=== PATIENT | female | born 1985 | race Caucasian/White ===

== ENCOUNTER 2017-09-26 11:57 | Emergency (ER) | payer MEDICAID ==
[~2017-09-26 11:57] MED LIST: BUTA1CAP36 PO; CIPR-214 PO; CYCL10TA29 PO; DUL20 PO; IBUP600T22 PO; KET10 PO; LORA-1456 PO; MULT1TAB54 PO; NORE0.3529 PO; NORT50CA40 PO; ONDA4TAB PO; ONDA4TAB9 PO; ONDA4TAB97 PO; OXYC-865 PO; SUMA6CAR SQ; TRAM-420 PO; [UNRECOGNIZED DRUG - OTHER]; muscle relaxer PO
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
[2017-09-26] MEDS ORDERED: NS(*) 0.9% 1000 ML BAG 1,000 ML IV ONE (12:15)
[2017-09-26 12:36] LABS: PLATELET COUNT, AUTOMATED 212 K/uL (150-450)
--- NOTE | 2017-09-26 13:00 | RADIOLOGY IMAGING REPORT ---
FACILITY: [facility] PATIENT NAME: Xin Bello : 1985 MR: [id number] V: [id number] EXAM DATE: ORDERING PHYSICIAN: SHAUN ANDERSEN TECHNOLOGIST: Location: [facility] Patient: Xin Bello : 1985 Visit/Account:[id number] Date of Sevice: 09/26/2017 2 VIEWS CHEST INDICATION: Chest pain, shortness of breath and dizziness. COMPARISON: None available FINDINGS: Cardiomediastinal silhouette and pulmonary vessels within normal limits. There is no focal infiltrate or lobar consolidation. There is no pneumothorax or pleural effusion. No nodule. Upper abdomen is unremarkable. No acute bony abnormality. IMPRESSION: 1. No acute cardiopulmonary process. Report Dictated By: Servando Stein at 09/26/2017 12:55 PM Report E-Signed By: Servando Stein at 09/26/2017 12:56 PM WSN:[id number]
--- NOTE | 2017-09-26 13:00 | EKG ---
FACILITY: [facility] [place] PATIENT NAME: BERRY BUSH : [id number] MR: [id number] V: [id number] EXAM DATE: ORDERING PHYSICIAN: SHAUN ANDERSEN TECHNOLOGIST: BRYANT Rodriguez Reason : DIZZINESS Blood Pressure : / mmHG Vent. Rate : 080 BPM Atrial Rate : 080 BPM P-R Int : 142 ms QRS Dur : 088 ms QT Int : 366 ms P-R-T Axes : 041 066 039 degrees QTc Int : 422 ms Normal sinus rhythm Normal ECG Confirmed by NORMA COPPOLA ([id number]) on 09/26/2017 5:44:29 PM Referred By: SHAUN Confirmed By:NORMA COPPOLA
[2017-09-26 13:30] VITALS: BP 135/77
[2017-09-26] MEDS ORDERED: hydrOXYzine 25 MG TAB PO ONE (13:35)
[2017-09-26] MEDS ORDERED: HYDR-4225 PO (13:46)
== END 2017-09-26 13:57 | disposition home or self-care (01) ==
LOC: ER 12:26
DX: R07.89 Other chest pain (principal); F41.9 Anxiety disorder, unspecified
CPT/HCPCS: 71046; 81001; 84484; 84703; 85025; 85379; 93005; 96360; 96361; 99284; J7030; 82040; 82247; 82310; 82374; 82435; 82565; 82947; 84075; 84132; 84155; 84295; 84450; 84460; 84520

== ENCOUNTER 2018-01-06 19:49 | Emergency (ER) | payer MEDICAID ==
[~2018-01-06 19:49] MED LIST changes: +HYDR-4225 PO
[2018-01-06] MEDS ORDERED: PROP10TA58 PO (20:21)
--- NOTE | 2018-01-06 20:30 | ER Report ---
History and Physical Time Seen By MD: 20:30 Hx. of Stated Complaint: PT reports right jaw pain that began this weekend after overdoing it cleaning HPI/ROS CHIEF COMPLAINT: Neck and jaw pain, low back pain HISTORY OF PRESENT ILLNESS: This is a 32 year old female. She has been having increased neck and jaw pain. Has had problems in the past. Tightness in the right side of his neck and jaw. [place] like she could not open and close it earlier, possibly was dislocated. She has been having increased pain since the weekend, possibly over did it with increased activity and cleaning. No fevers or chills. Chronic problems in back and neck. Having increased low back pain and muscle tightness/spasming as well. No incontinence of bowel or bladder function. Chronically will have some episodes of numbness where she cannot feel if she is urinating or not. She has no weakness, but gets occasional numbness in feet. No nausea or vomiting. No other pain. No runny nose, but has mild sore throat. Allergies: Coded Allergies: BEE STINGS (Verified Allergy, Severe, ANAPHYLAXIS, 09/26/17) promethazine (Verified Allergy, Unknown, 09/26/17) Home Meds Active Scripts Ketorolac Tromethamine (KETOROLAC TROMETHAMINE) 10 Mg Tab, 10 MG PO Q6H Y for PAIN, #12 TAB 0 Refills Prov:BLAYNE JETER MD 01/06/18 Hydrocodone Bit/Acetaminophen (HYDROCODON-ACETAMINOPHEN 5-325) 1 Each Tablet, 1 EACH PO Q4H Y for PAIN, #8 TAB 0 Refills Prov:BLAYNE JETER MD 01/06/18 Hydroxyzine Hcl (HYDROXYZINE HCL) 25 Mg Tablet, 25 MG PO Q6H Y for ANXIETY, #30 TAB Prov:SHAUN ANDERSEN BODILY INJURY ADJUSTER 09/26/17 Reported Medications Propranolol Hcl (PROPRANOLOL HCL) 10 Mg Tablet, 10 MG PO BID 01/06/18 Reviewed Nurses Notes: Yes Hx Smoking: No Smoking Status: Never Smoker Hx Substance Use Disorder: No Hx Alcohol Use: No Constitutional Vital Sign - Last 24 Hours 01/06/18 01/06/18 01/06/18 01/06/18 20:02 20:41 20:49 21:00 Temp 99.5 Pulse 86 77 Resp 16 B/P (MAP) 128/48 102/55 (71) 123/82 (96) Pulse Ox 97 94 O2 Delivery Room Air 01/06/18 01/06/18 01/06/18 01/06/18 21:04 21:19 21:24 21:47 Pulse 75 69 B/P (MAP) 118/84 (95) Pulse Ox 96 96 01/06/18 01/06/18 01/06/18 01/06/18 21:54 22:00 22:09 22:24 Pulse 65 64 64 B/P (MAP) 137/92 (107) Pulse Ox 98 97 98 01/06/18 01/06/18 01/06/18 01/06/18 22:30 22:39 22:44 22:59 Pulse 69 67 61 B/P (MAP) 118/67 (84) Pulse Ox 98 98 97 01/06/18 01/06/18 01/06/18 01/06/18 23:00 23:05 23:20 23:30 Pulse 76 75 B/P (MAP) 128/73 (91) 121/81 (94) Pulse Ox 96 96 01/06/18 01/06/18 01/06/18 23:35 23:40 23:45 Pulse 72 72 B/P (MAP) 111/66 (81) Pulse Ox 97 94 Physical Exam General Appearance: The patient is alert. No acute distress. Eyes: Pupils are equal, round. No pallor, injection or icterus. Extraocular movements are intact. Reactive to light. ENT: Mucous membranes are moist. Normal oral mucosa. Posterior oropharynx is normal. Normal nasal mucosa. Normal tympanic membranes and canals. Neck: Supple, has some muscle tightness in the posterior paraspinous muscles and SCM. No lymphadenopathy. Respiratory: Lungs are clear to auscultation. Cardiovascular: Regular rate and rhythm. No murmurs, gallops or rubs. Normal capillary refill. Neurological: Alert and oriented x3. Cranial nerves II through XII show no acute deficits on my exam. No focal neurologic deficits in the extremities; normal sensation and motor function of lower extremities. Negative strait leg raise. Skin: Warm and dry. No rashes. Musculoskeletal: Tender muscles to palpation in neck in posterior and SCM on right, tender over TMJ on the right. Tight Full range of motion. Tender and tight paraspinous muscles in the lumbar area. DIFFERENTIAL DIAGNOSIS: After history and physical exam, differential diagnosis was considered for neck and jaw pain and ongoing problems with low back pain, but worsening recently. Medical Decision Making Data Points Result Diagram: 01/06/18211101/06/182111 Laboratory Hematology Test 01/06/18 21:12 Red Blood Count 5.05 M/uL (4.17-5.56) Mean Corpuscular Volume 83.8 fL (80.0-96.0) Mean Corpuscular Hemoglobin 29.3 pg (26.0-33.0) Mean Corpuscular Hemoglobin Concent 35.0 g/dL (32.0-36.0) Red Cell Distribution Width 13.1 % (11.5-14.5) Mean Platelet Volume 8.3 fL (7.2-11.1) Neutrophils (%) (Auto) 51.8 % (39.4-72.5) Lymphocytes (%) (Auto) 35.0 % (17.6-49.6) Monocytes (%) (Auto) 6.8 % (4.1-12.4) Eosinophils (%) (Auto) 4.9 % (0.4-6.7) Basophils (%) (Auto) 1.5 % (0.3-1.4) Nucleated RBC Relative Count (auto) 0.1 /100WBC Neutrophils # (Auto) 4.7 K/uL (2.0-7.4) Lymphocytes # (Auto) 3.2 K/uL (1.3-3.6) Monocytes # (Auto) 0.6 K/uL (0.3-1.0) Eosinophils # (Auto) 0.4 K/uL (0.0-0.5) Basophils # (Auto) 0.1 K/uL (0.0-0.1) Nucleated RBC Absolute Count (auto) 0.01 K/uL Erythrocyte Sedimentation Rate 6 mm/HOUR (0-20) Sodium Level 141 mmol/L (137-145) Potassium Level 3.8 mmol/L (3.5-5.0) Chloride Level 107 mmol/L (98-107) Carbon Dioxide Level 22 mmol/L (22-31) Blood Urea Nitrogen 10 mg/dl (7-18) Creatinine 0.60 mg/dl (0.52-1.04) Glomerular Filtration Rate Calc > 60.0 Random Glucose 95 mg/dl (75-110) Calcium Level 9.0 mg/dl (8.4-10.2) Total Bilirubin 0.8 mg/dl (0.2-1.3) Aspartate Amino Transf (AST/SGOT) 23 U/L (0-35) Alanine Aminotransferase (ALT/SGPT) 22 U/L (0-56) Alkaline Phosphatase 89 U/L (0-126) C-Reactive Protein 1.5 mg/dl (<1.0) Total Protein 6.8 gm/dl (6.3-8.2) Albumin 3.7 g/dl (3.5-5.0) Chemistry Test 01/06/18 21:12 White Blood Count 9.1 k/uL (4.5-11.0) Red Blood Count 5.05 M/uL (4.17-5.56) Hemoglobin 14.8 g/dL (12.0-16.0) Hematocrit 42.3 % (34.0-47.0) Mean Corpuscular Volume 83.8 fL (80.0-96.0) Mean Corpuscular Hemoglobin 29.3 pg (26.0-33.0) Mean Corpuscular Hemoglobin Concent 35.0 g/dL (32.0-36.0) Red Cell Distribution Width 13.1 % (11.5-14.5) Platelet Count 206 K/uL (150-450) Mean Platelet Volume 8.3 fL (7.2-11.1) Neutrophils (%) (Auto) 51.8 % (39.4-72.5) Lymphocytes (%) (Auto) 35.0 % (17.6-49.6) Monocytes (%) (Auto) 6.8 % (4.1-12.4) Eosinophils (%) (Auto) 4.9 % (0.4-6.7) Basophils (%) (Auto) 1.5 % (0.3-1.4) Nucleated RBC Relative Count (auto) 0.1 /100WBC Neutrophils # (Auto) 4.7 K/uL (2.0-7.4) Lymphocytes # (Auto) 3.2 K/uL (1.3-3.6) Monocytes # (Auto) 0.6 K/uL (0.3-1.0) Eosinophils # (Auto) 0.4 K/uL (0.0-0.5) Basophils # (Auto) 0.1 K/uL (0.0-0.1) Nucleated RBC Absolute Count (auto) 0.01 K/uL Erythrocyte Sedimentation Rate 6 mm/HOUR (0-20) Glomerular Filtration Rate Calc > 60.0 Calcium Level 9.0 mg/dl (8.4-10.2) Total Bilirubin 0.8 mg/dl (0.2-1.3) Aspartate Amino Transf (AST/SGOT) 23 U/L (0-35) Alanine Aminotransferase (ALT/SGPT) 22 U/L (0-56) Alkaline Phosphatase 89 U/L (0-126) C-Reactive Protein 1.5 mg/dl (<1.0) Total Protein 6.8 gm/dl (6.3-8.2) Albumin 3.7 g/dl (3.5-5.0) EKG/Imaging Imaging EXAMINATION: CT facial bone with IV contrast HISTORY: Left jaw and neck pain. COMPARISON: None. TECHNIQUE: Axial images were obtained from the superior aspect of the orbits through the inferior aspect of mandible with IV contrast. Coronal and sagittal reformatted images were obtained from the axial source data. CONTRAST: 75 mL of IV Isovue-370 One of the following dose optimization techniques was utilized in the performance of this exam: Automated exposure control; adjustment of the mA and/ or kV according to the patient's size; or use of an iterative reconstruction technique. Specific details can be referenced in the facility's radiology CT exam operational policy. FINDINGS: Soft Tissues: No evidence of mass, significant soft tissue swelling or abnormal fluid collection. Mandible / TMJ: Negative. Maxillae / pterygoid plates: Negative. Zygoma / zygomatic arches: Negative. Orbits: Negative. Nasal bones / nasal septum: Negative. Frontal bones: Negative. Enhancement: Normal. Sinuses: Negative. Visualized brain: Negative. IMPRESSION: No evidence of acute pathology in the face. Report Dictated By: Elroy Cary MD at 01/06/2018 10:43 PM EXAMINATION: CT neck with IV contrast HISTORY: Left jaw and neck pain. COMPARISON: 03/21/2017 TECHNIQUE: Spiral scan was obtained from the hard palate through the upper chest during injection of nonionic iodinated intravenous contrast. Sagittal and coronal reformatted images are also submitted. CONTRAST: 75 mL of IV Isovue-370 One of the following dose optimization techniques was utilized in the performance of this exam: Automated exposure control; adjustment of the mA and/ or kV according to the patient's size; or use of an iterative reconstruction technique. Specific details can be referenced in the facility's radiology CT exam operational policy. FINDINGS: Masses/lesions: A 9 mm hypoattenuating nodule in the lower pole of the right thyroid lobe. No abnormal fluid collection or significant soft tissue swelling in the neck. Airway: Normal. Vessels: Negative. Musculoskeletal / Body wall: Fusion of the right first and second ribs. Mild disc degenerative changes at C4-5 and C5-6 with disc space narrowing and endplate osteophytes. Mild kyphotic curvature of the cervical spine. Mild right neural foraminal narrowing at C4-5 and mild bilateral neural foraminal narrowing at C5-6 secondary to uncovertebral spurring. Lymph node assessment: No lymphadenopathy by size criteria. Visualized orbits / brain / paranasal sinuses: Negative. Upper chest: Negative. IMPRESSION: Mild disc degenerative changes in the cervical spine. A solitary 9 mm thyroid nodule in the right lobe has no suspicious features. In the absence of clinical risk factors for thyroid cancer, this finding is highly likely benign and no additional imaging or follow-up is recommended. Report Dictated By: Elroy Cary MD at 01/06/2018 10:31 PM EXAMINATION: CT Lumbar spine without intravenous contrast HISTORY: Low back pain. COMPARISON: None. TECHNIQUE: Axial images were obtained through the lumbar spine without IV contrast administration. Coronal and sagittal reformatted images were obtained from the axial source data. One of the following dose optimization techniques was utilized in the performance of this exam: Automated exposure control; adjustment of the mA and/ or kV according to the patient's size; or use of an iterative reconstruction technique. Specific details can be referenced in the facility's radiology CT exam operational policy. FINDINGS: Alignment: Normal. Vertebral bodies: Vertebral body heights are maintained. No acute fracture. Posterior elements: Negative. No acute fracture. Hardware: None. Disc Spaces: Intervertebral disc heights are maintained. No central spinal canal stenosis. No neural foraminal stenosis. Soft tissues: Negative. Visualized retroperitoneal / abdominal structures: 2 nonobstructive 2 mm calculi in the left kidney and one nonobstructive 2 mm calculus in the right kidney. No hydronephrosis. Postcholecystectomy. IMPRESSION: No acute fracture or significant degenerative changes of the lumbar spine. Small nonobstructive calculi in the kidneys. Report Dictated By: Elroy Cary MD at 01/06/2018 10:16 PM ED Course/Re-evaluation ED Course Patient had significant relief with Toradol and Norflex. Imaging negative for acute problems as noted. She will follow-up with her pain specialist. Decision to Disposition Date: Jan 06, 2018 Decision to Disposition Time: 23:42 Depart Departure Latest Vital Signs Vital Signs Date Time Temp Pulse Resp B/P (MAP) Pulse Ox O2 Delivery O2 Flow Rate FiO2 01/06/18 23:45 111/66 (81) 01/06/18 23:40 72 94 01/06/18 20:02 99.5 16 Room Air Impression: Primary Impression: Myofascial muscle pain Condition: Improved Disposition: HOME OR SELF-CARE New Scripts Ketorolac Tromethamine (KETOROLAC TROMETHAMINE) 10 Mg Tab 10 MG PO Q6H Y for PAIN, #12 TAB 0 Refills Prov: BLAYNE JETER MD 01/06/18 Hydrocodone Bit/Acetaminophen (HYDROCODON-ACETAMINOPHEN 5-325) 1 Each Tablet 1 EACH PO Q4H Y for PAIN, #8 TAB 0 Refills Prov: BLAYNE JETER MD 01/06/18 Patient Instructions: Musculoskeletal Pain (ED) Additional Instructions: Take the muscle relaxer you have at home. Take Toradol 10mg, one every 6 hours as needed for pain. Take with food. This is a strong anti-inflammatory medicine that you take for 2-3 days. Take Lortab 5/325, one every 4 hours as needed for severe pain. Follow-up with your regular provider. BLAYNE JETER MD Jan 06, 2018 20:30
[2018-01-06] MEDS ORDERED: NS(*) 0.9% 1000 ML BAG 1,000 ML IV ONE (20:40)
[2018-01-06] MEDS ORDERED: ORPHENADRINE 60MG/2ML INJ IVP ONE (20:40)
[2018-01-06] MEDS ORDERED: KETOROLAC 15 MG/ML VIAL IVP ONE (20:40)
[2018-01-06] MEDS ORDERED: IOPAMIDOL 76% 75 ML INFUS BTL 75 ML ONE (21:07)
[2018-01-06] MEDS ORDERED: NS 0.9% 25 ML BAG 25 ML ONE (21:09)
[2018-01-06 21:18] LABS: PLATELET COUNT, AUTOMATED 206 K/uL (150-450)
--- NOTE | 2018-01-06 22:36 | RADIOLOGY IMAGING REPORT ---
FACILITY: [facility] [place] PATIENT NAME: Xin Bello : 1985 MR: [id number] V: [id number] EXAM DATE: ORDERING PHYSICIAN: BLAYNE JETER TECHNOLOGIST: Location: [facility] [place] Patient: Xin Bello : 1985 Visit/Account:[id number] Date of Sevice: 01/06/2018 EXAMINATION: CT Lumbar spine without intravenous contrast HISTORY: Low back pain. COMPARISON: None. TECHNIQUE: Axial images were obtained through the lumbar spine without IV contrast administration. C oronal and sagittal reformatted images were obtained from the axial source data. One of the following dose optimization techniques was utilized in the performance of this exam: Autom ated exposure control; adjustment of the mA and/or kV according to the patient's size; or use of an i terative reconstruction technique. Specific details can be referenced in the facility's radiology C T exam operational policy. FINDINGS: Alignment: Normal. Vertebral bodies: Vertebral body heights are maintained. No acute fracture. Posterior elements: Negative. No acute fracture. Hardware: None. Disc Spaces: Intervertebral disc heights are maintained. No central spinal canal stenosis. No neural foraminal stenosis. Soft tissues: Negative. Visualized retroperitoneal / abdominal structures: 2 nonobstructive 2 mm calculi in the left kidney a nd one nonobstructive 2 mm calculus in the right kidney. No hydronephrosis. Postcholecystectomy. IMPRESSION: No acute fracture or significant degenerative changes of the lumbar spine. Small nonobstructive calculi in the kidneys. Report Dictated By: Elroy Cary MD at 01/06/2018 10:16 PM Report E-Signed By: Elroy Cary MD at 01/06/2018 10:31 PM WSN:[id number]
--- NOTE | 2018-01-06 22:45 | RADIOLOGY IMAGING REPORT ---
FACILITY: [facility] PATIENT NAME: Xin Bello : 1985 MR: [id number] V: [id number] EXAM DATE: ORDERING PHYSICIAN: BLAYNE JETER TECHNOLOGIST: Location: [facility] Patient: Xin Bello : 1985 Visit/Account:[id number] Date of Sevice: 01/06/2018 EXAMINATION: CT neck with IV contrast HISTORY: Left jaw and neck pain. COMPARISON: 03/21/2017 TECHNIQUE: Spiral scan was obtained from the hard palate through the upper chest during injection o f nonionic iodinated intravenous contrast. Sagittal and coronal reformatted images are also submitte d. CONTRAST: 75 mL of IV Isovue-370 One of the following dose optimization techniques was utilized in the performance of this exam: Autom ated exposure control; adjustment of the mA and/or kV according to the patient's size; or use of an i terative reconstruction technique. Specific details can be referenced in the facility's radiology C T exam operational policy. FINDINGS: Masses/lesions: A 9 mm hypoattenuating nodule in the lower pole of the right thyroid lobe. No abnorm al fluid collection or significant soft tissue swelling in the neck. Airway: Normal. Vessels: Negative. Musculoskeletal / Body wall: Fusion of the right first and second ribs. Mild disc degenerative change s at C4-5 and C5-6 with disc space narrowing and endplate osteophytes. Mild kyphotic curvature of the cervical spine. Mild right neural foraminal narrowing at C4-5 and mild bilateral neural foraminal na rrowing at C5-6 secondary to uncovertebral spurring. Lymph node assessment: No lymphadenopathy by size criteria. Visualized orbits / brain / paranasal sinuses: Negative. Upper chest: Negative. IMPRESSION: Mild disc degenerative changes in the cervical spine. A solitary 9 mm thyroid nodule in the right lobe has no suspicious features. In the absence of clinic al risk factors for thyroid cancer, this finding is highly likely benign and no additional imaging or follow-up is recommended. Report Dictated By: Elroy Cary MD at 01/06/2018 10:31 PM Report E-Signed By: Elroy Cary MD at 01/06/2018 10:43 PM WSN:[id number]
--- NOTE | 2018-01-06 22:51 | RADIOLOGY IMAGING REPORT ---
FACILITY: [facility] - [place] PATIENT NAME: Xin Bello : 1985 MR: [id number] V: [id number] EXAM DATE: ORDERING PHYSICIAN: BLAYNE JETER TECHNOLOGIST: Location: [facility] Patient: Xin Bello : 1985 Visit/Account:[id number] Date of Sevice: 01/06/2018 EXAMINATION: CT facial bone with IV contrast HISTORY: Left jaw and neck pain. COMPARISON: None. TECHNIQUE: Axial images were obtained from the superior aspect of the orbits through the inferior as pect of mandible with IV contrast. Coronal and sagittal reformatted images were obtained from the axi al source data. CONTRAST: 75 mL of IV Isovue-370 One of the following dose optimization techniques was utilized in the performance of this exam: Autom ated exposure control; adjustment of the mA and/or kV according to the patient's size; or use of an i terative reconstruction technique. Specific details can be referenced in the facility's radiology C T exam operational policy. FINDINGS: Soft Tissues: No evidence of mass, significant soft tissue swelling or abnormal fluid collection. Mandible / TMJ: Negative. Maxillae / pterygoid plates: Negative. Zygoma / zygomatic arches: Negative. Orbits: Negative. Nasal bones / nasal septum: Negative. Frontal bones: Negative. Enhancement: Normal. Sinuses: Negative. Visualized brain: Negative. IMPRESSION: No evidence of acute pathology in the face. Report Dictated By: Elroy Cary MD at 01/06/2018 10:43 PM Report E-Signed By: Elroy Cary MD at 01/06/2018 10:49 PM WSN:[id number]
[2018-01-06] MEDS ORDERED: KETOROLAC TROM 10 MG TAB TH PO ONE (23:40)
[2018-01-06] MEDS ORDERED: ACET/HYDROC 5/325MG TH ER ONLY 2 TAB/BOTTLE PO ONE (23:40)
[2018-01-06] MEDS ORDERED: LOR5/325 PO (23:44)
[2018-01-06] MEDS ORDERED: KET10 PO (23:44)
[2018-01-06 23:45] VITALS: BP 111/66
== END 2018-01-06 23:48 | disposition home or self-care (01) ==
LOC: ER 20:21
DX: M79.1 Myalgia (principal)
CPT/HCPCS: 70487; 70491; 72131; 85025; 85651; 86140; 96361; 96374; 96375; 99284; J1885; J2360; J7030; Q9967; 82040; 82247; 82310; 82374; 82435; 82565; 82947; 84075; 84132; 84155; 84295; 84450; 84460; 84520

== ENCOUNTER 2018-02-07 16:06 | Emergency (ER) | payer MEDICAID ==
[~2018-02-07 16:06] MED LIST changes: +LOR5/325 PO; +PROP10TA58 PO
--- NOTE | 2018-02-07 16:56 | ER Report ---
History and Physical Time Seen By MD: 16:56 Hx. of Stated Complaint: NUMBNESS IN FEET FOR ONE MONTH - INJURY TO ANKLE (AAKASH CAICEDO MD) HPI/ROS CHIEF COMPLAINT: rolled ankle, concerns from urgent care regarding cauda equina or other neurologic problem HISTORY OF PRESENT ILLNESS: This is a 32 year old female. She went to urgent care because she rolled her left ankle today. Pain in the foot and ankle, bilateral malleoli and up into the lower leg. She rolled this same ankle about a month ago. She has been having problems with the ankle because of leg weakness. This has been progressing over the last few months. She has been having numbness in both legs at times, right side seems a little worse. Having numbness in the saddle area to the point where she cannot feel when she is urinating or having a bowel movement. She cannot have an orgasm, because of lack of feeling in the vaginal area and sometimes has sharp or burning pain with intercourse as well. She has frequent episodes of urinary incontinence, but no burning with urination or urinary urgency. She has small amounts of bowel incontinence as well. She does have a history of ulcerative colitis, but is not having symptoms of a flare up at this time. She has a history of neck injury with chronic right arm weakness, but feels like this may be worse. No real symptoms of weakness in the left arm, but will get some numbness in the hand and fingers occasionally. She does get headaches, but may be from the neck injury. Has chronic pain in the neck and back, especially on the right side extending down her back and up into the neck to the base of the skull. No fevers or chills with this. REVIEW OF SYSTEMS: Constitutional: As above. Eyes: No discharge. No vision changes. ENT: No sore throat. No congestion. Cardiovascular: No chest pain. No palpitations. Respiratory: No cough. No shortness of breath. Gastrointestinal: No abdominal pain. No nausea or vomiting. Genitourinary: As above. Musculoskeletal: As above. Skin: No rashes. Neurological: As above. (AAKASH CAICEDO MD) Allergies: Coded Allergies: BEE STINGS (Verified Allergy, Severe, ANAPHYLAXIS, 09/26/17) promethazine (Verified Allergy, Unknown, 09/26/17) Home Meds Active Scripts Ketorolac Tromethamine (KETOROLAC TROMETHAMINE) 10 Mg Tab, 10 MG PO Q6H Y for PAIN, #12 TAB 0 Refills Prov:AAKASH CAICEDO MD 01/06/18 Hydrocodone Bit/Acetaminophen (HYDROCODON-ACETAMINOPHEN 5-325) 1 Each Tablet, 1 EACH PO Q4H Y for PAIN, #8 TAB 0 Refills Prov:AAKASH CAICEDO MD 01/06/18 Hydroxyzine Hcl (HYDROXYZINE HCL) 25 Mg Tablet, 25 MG PO Q6H Y for ANXIETY, #30 TAB Prov:SHAUN ANDERSEN TRACK INSPECTOR 09/26/17 Reported Medications Propranolol Hcl (PROPRANOLOL HCL) 10 Mg Tablet, 10 MG PO ONCE 01/06/18 Reviewed Nurses Notes: Yes (AAKASH CAICEDO MD) Hx Smoking: No Smoking Status: Never Smoker Hx Substance Use Disorder: No Hx Alcohol Use: No (AAKASH CAICEDO MD) Constitutional Vital Sign - Last 24 Hours 02/07/18 02/07/18 02/07/18 02/07/18 16:30 16:30 17:00 17:30 Temp 99.1 Pulse 92 88 85 75 Resp 18 B/P (MAP) 87/69 115/87 (96) 119/61 (80) Pulse Ox 97 97 98 95 O2 Delivery Room Air 02/07/18 17:35 Pulse 78 Pulse Ox 93 (DANIEL FUENTES DO) Physical Exam General Appearance: The patient is alert. No acute distress. Eyes: Pupils are equal, round. Reactive to light. No pallor, injection or icterus. Extraocular movements are intact. ENT: Mucous membranes are moist. Has some ulcerations on the left tonsillar pillar. Normal tympanic membranes and canals. Neck: Supple, has some pain with palpation of the neck anteriorly and posteriorly in the neck muscles. No lymphadenopathy. No masses. No thyromegaly. Respiratory: Breathing easily and unlabored. Lungs are clear to auscultation. Cardiovascular: Regular rate and rhythm. No murmurs, gallops or rubs. Normal capillary refill. No edema. Gastrointestinal: Abdomen is soft and non tender. Nondistended. Normal active bowel sounds. Neurological: Alert and oriented x3. Cranial nerve exam was done with eye exam as noted above. Normal facial sensation. Normal motor face. Symmetric elevation of palate and midline tongue. Arms show global weakness in the right arm, but she does have this chronically. Has some decreased sensation in the right forearm and in the bilateral 4th and 5th fingers. Legs show bilateral numbness throughout the feet bilaterally, numbness in the lower legs and medial thighs. Weakness globally in both legs with leg hips, ankles, feet toes. Normal coordination with finger to nose and heel to lindquist. Reflexes are diminished throughout upper and lower extremities. Skin: Warm and dry. Musculoskeletal: Extremities are nontender to palpation. Has pain in the neck muscles and in the paraspinous muscles in back. Some mild pain with palpation of the low back. DIFFERENTIAL DIAGNOSIS: After history and physical exam, differential diagnosis was considered for a patient who initially came in because of rolled ankle on the left side, but with symptoms that are more worrisome for neurologic symptoms. Difficult to pinpoint where this is coming from, she does not have low back pain but does have some prior neck injuries. Discussed all this with her and will be getting MRI lumbar spine, cervical spine, and brain. ([facility]) Medical Decision Making Data Points Result Diagram: 02/07/18 1747 02/07/18 1747 Laboratory Hematology Test 02/07/18 17:47 Red Blood Count 4.87 M/uL (4.17-5.56) Mean Corpuscular Volume 84.5 fL (80.0-96.0) Mean Corpuscular Hemoglobin 29.7 pg (26.0-33.0) Mean Corpuscular Hemoglobin Concent 35.1 g/dL (32.0-36.0) Red Cell Distribution Width 13.5 % (11.5-14.5) Mean Platelet Volume 8.6 fL (7.2-11.1) Neutrophils (%) (Auto) 63.8 % (39.4-72.5) Lymphocytes (%) (Auto) 26.8 % (17.6-49.6) Monocytes (%) (Auto) 6.1 % (4.1-12.4) Eosinophils (%) (Auto) 2.6 % (0.4-6.7) Basophils (%) (Auto) 0.7 % (0.3-1.4) Nucleated RBC Relative Count (auto) 0.1 /100WBC Neutrophils # (Auto) 5.8 K/uL (2.0-7.4) Lymphocytes # (Auto) 2.4 K/uL (1.3-3.6) Monocytes # (Auto) 0.6 K/uL (0.3-1.0) Eosinophils # (Auto) 0.2 K/uL (0.0-0.5) Basophils # (Auto) 0.1 K/uL (0.0-0.1) Nucleated RBC Absolute Count (auto) 0.01 K/uL Erythrocyte Sedimentation Rate 9 mm/HOUR (0-20) Sodium Level 140 mmol/L (137-145) Potassium Level 3.8 mmol/L (3.5-5.0) Chloride Level 106 mmol/L (98-107) Carbon Dioxide Level 23 mmol/L (22-31) Blood Urea Nitrogen 9 mg/dl (7-18) Creatinine 0.70 mg/dl (0.52-1.04) Glomerular Filtration Rate Calc > 60.0 Random Glucose 81 mg/dl (75-110) Calcium Level 8.8 mg/dl (8.4-10.2) Total Bilirubin 0.8 mg/dl (0.2-1.3) Aspartate Amino Transf (AST/SGOT) 18 U/L (0-35) Alanine Aminotransferase (ALT/SGPT) 22 U/L (0-56) Alkaline Phosphatase 97 U/L (0-126) C-Reactive Protein 0.7 mg/dl (<1.0) Total Protein 6.9 g/dl (6.3-8.2) Albumin 3.9 g/dl (3.5-5.0) Human Chorionic Gonadotropin, Qual Negative (NEGATIVE) Chemistry Test 02/07/18 17:47 White Blood Count 9.1 k/uL (4.5-11.0) Red Blood Count 4.87 M/uL (4.17-5.56) Hemoglobin 14.5 g/dL (12.0-16.0) Hematocrit 41.2 % (34.0-47.0) Mean Corpuscular Volume 84.5 fL (80.0-96.0) Mean Corpuscular Hemoglobin 29.7 pg (26.0-33.0) Mean Corpuscular Hemoglobin Concent 35.1 g/dL (32.0-36.0) Red Cell Distribution Width 13.5 % (11.5-14.5) Platelet Count 184 K/uL (150-450) Mean Platelet Volume 8.6 fL (7.2-11.1) Neutrophils (%) (Auto) 63.8 % (39.4-72.5) Lymphocytes (%) (Auto) 26.8 % (17.6-49.6) Monocytes (%) (Auto) 6.1 % (4.1-12.4) Eosinophils (%) (Auto) 2.6 % (0.4-6.7) Basophils (%) (Auto) 0.7 % (0.3-1.4) Nucleated RBC Relative Count (auto) 0.1 /100WBC Neutrophils # (Auto) 5.8 K/uL (2.0-7.4) Lymphocytes # (Auto) 2.4 K/uL (1.3-3.6) Monocytes # (Auto) 0.6 K/uL (0.3-1.0) Eosinophils # (Auto) 0.2 K/uL (0.0-0.5) Basophils # (Auto) 0.1 K/uL (0.0-0.1) Nucleated RBC Absolute Count (auto) 0.01 K/uL Erythrocyte Sedimentation Rate 9 mm/HOUR (0-20) Glomerular Filtration Rate Calc > 60.0 Calcium Level 8.8 mg/dl (8.4-10.2) Total Bilirubin 0.8 mg/dl (0.2-1.3) Aspartate Amino Transf (AST/SGOT) 18 U/L (0-35) Alanine Aminotransferase (ALT/SGPT) 22 U/L (0-56) Alkaline Phosphatase 97 U/L (0-126) C-Reactive Protein 0.7 mg/dl (<1.0) Total Protein 6.9 g/dl (6.3-8.2) Albumin 3.9 g/dl (3.5-5.0) Human Chorionic Gonadotropin, Qual Negative (NEGATIVE) (DANIEL FUENTES DO) EKG/Imaging Imaging Results: MRI of the brain, cervical spine, lumbar spine was obtained. The results of the study are no acute findings. The study was read by the radiologist. I viewed the images myself on the PACS system. X-ray: X-rays of left foot and ankle, 3 views each were obtained. I viewed the images myself on the PACS system. My interpretation of the images is: No acute fracture, dislocation or malalignment noted. The radiologist interpretation had no clinically significant variation from this interpretation. (DANIEL FUENTES DO) ED Course/Re-evaluation ED Course After initial evaluation, based on symptom that could represent neurologic problems, specifically of the low back, we decided to get an MRI. Because of history of neck problems and some symptoms of upper extremities as well, we ordered a cervical spine and brain MRI as well. Ankle x-ray and foot x-ray of the left side as well. Turned Over The care of the patient was turned over to Dr. Fuentes. Aakash Caiecdo M.D. I authorize my typed signature that I authenticated this report. (AAKASH CAICEDO MD) ED Course Care was assumed at shift change from Dr. Al. Diagnostic MRIs of head, neck and lumbar spine were pending. Due to patient's symptoms. Diagnostic x- rays of the foot and ankle were unremarkable. Patient was advised to conservative treatment plan of Tylenol and ibuprofen. Patient was advised to follow-up with her primary care and her neurologist. Decision to Disposition Date: Feb 07, 2018 Decision to Disposition Time: 21:50 (DANIEL FUENTES DO) Depart Departure Latest Vital Signs Vital Signs Date Time Temp Pulse Resp B/P (MAP) Pulse Ox O2 Delivery O2 Flow Rate FiO2 02/07/18 17:35 78 93 02/07/18 17:30 119/61 (80) 02/07/18 16:30 99.1 18 Room Air (DANIEL FUENTES DO) Impression: Primary Impression: Left ankle sprain Additional Impression: Unsteady gait Condition: Improved Disposition: HOME OR SELF-CARE Patient Instructions: Ankle Sprain (ED) Additional Instructions: Take ibuprofen 200 mg 3 tablets 3 times a day with food for ankle sprain treatment Follow-up with your primary care and neurologist for further evaluation within one week Problem Qualifiers Primary Impression: Left ankle sprain Encounter type: initial encounter Involved ligament of ankle: unspecified ligament Qualified Codes: S93.402A - Sprain of unspecified ligament of left ankle, initial encounter AAKASH CAICEDO MD Feb 07, 2018 16:56 DANIEL FUENTES DO Feb 07, 2018 21:51
[2018-02-07 17:30] VITALS: BP 119/61
[2018-02-07 17:57] LABS: PLATELET COUNT, AUTOMATED 184 K/uL (150-450)
--- NOTE | 2018-02-07 18:34 | RADIOLOGY IMAGING REPORT ---
FACILITY: [facility] PATIENT NAME: Xin Bello : 1985 MR: [id number] V: [id number] EXAM DATE: ORDERING PHYSICIAN: BLAYNE JETER TECHNOLOGIST: Location: [facility] - [place] Patient: Xin Bello : 1985 Visit/Account:[id number] Date of Sevice: 02/07/2018 EXAMINATION: Left ankle radiographs 3 views Left foot radiographs 3 views HISTORY: Rolled ankle. COMPARISON: Left ankle and foot radiographs from 09/18/2014. FINDINGS: AP, lateral and oblique views of the left ankle, and AP, lateral and oblique views of the l eft foot are obtained. Bones: No acute fracture or dislocation. Joint spaces: Negative. Hardware: None. Alignment: Normal. Soft tissues: Negative. IMPRESSION: 1. No acute left ankle fracture. 2. No acute left foot fracture. Report Dictated By: Mechelle Lopez MD at 02/07/2018 6:27 PM Report E-Signed By: Mechelle Lopez MD at 02/07/2018 6:31 PM WSN:[id number]
--- NOTE | 2018-02-07 18:34 | RADIOLOGY IMAGING REPORT ---
FACILITY: [facility] PATIENT NAME: Xin Bello : 1985 MR: [id number] V: [id number] EXAM DATE: ORDERING PHYSICIAN: BLAYNE JETER TECHNOLOGIST: Location: [facility] Patient: Xin Bello : 1985 Visit/Account:[id number] Date of Sevice: 02/07/2018 EXAMINATION: Left ankle radiographs 3 views Left foot radiographs 3 views HISTORY: Rolled ankle. COMPARISON: Left ankle and foot radiographs from 09/18/2014. FINDINGS: AP, lateral and oblique views of the left ankle, and AP, lateral and oblique views of the l eft foot are obtained. Bones: No acute fracture or dislocation. Joint spaces: Negative. Hardware: None. Alignment: Normal. Soft tissues: Negative. IMPRESSION: 1. No acute left ankle fracture. 2. No acute left foot fracture. Report Dictated By: Mechelle Lopez MD at 02/07/2018 6:27 PM Report E-Signed By: Mechelle Lopez MD at 02/07/2018 6:31 PM WSN:[id number]
[2018-02-07] MEDS ORDERED: GADOBENATE 529MG/1ML 15ML VIAL IVP ONE (18:50)
--- NOTE | 2018-02-07 21:06 | RADIOLOGY IMAGING REPORT ---
FACILITY: [facility] - [place] PATIENT NAME: Xin Bello : 1985 MR: [id number] V: [id number] EXAM DATE: ORDERING PHYSICIAN: BLAYNE JETER TECHNOLOGIST: Location: [facility] [place] Patient: Xin Bello : 1985 Visit/Account:[id number] Date of Sevice: 02/07/2018 EXAMINATION: MRI brain without IV contrast MRI brain with IV contrast HISTORY: Weakness in legs, incontinence, arm weakness. COMPARISON: Brain MRI from 05/12/[address] head from 03/21/2017. TECHNIQUE: Multi-planar, multi-sequence brain MRI was performed before and after IV gadolinium. CONTRAST: 15 mL of IV MultiHance gadolinium. FINDINGS: Brain volume: Normal. Sagittal midline structures: Normal. Ventricles: Normal. Acute ischemic changes: No diffusion restriction present to suggest acute ischemia. Hemorrhage: No acute hemorrhage or hemosiderin staining. Masses/edema: None. Enhancement: No abnormal enhancement. Casey-white: Negative. White matter: No focal white matter signal abnormality or lesion. Vessels: Normal. Extra-axial: None. Calvarium/scalp: Negative. Skull base: Negative. Visualized sinuses/orbits: Negative. Visualized upper neck: Negative. IMPRESSION: No acute infarct, hemorrhage or intracranial mass lesion. No white matter lesion. Report Dictated By: Mechelle Lopez MD at 02/07/2018 8:59 PM Report E-Signed By: Mechelle Lopez MD at 02/07/2018 9:02 PM WSN:[id number]
--- NOTE | 2018-02-07 21:07 | RADIOLOGY IMAGING REPORT ---
FACILITY: [facility] PATIENT NAME: Xin Bello : 1985 MR: [id number] V: [id number] EXAM DATE: ORDERING PHYSICIAN: BLAYNE JETER TECHNOLOGIST: Location: [facility] - [place], [place] Patient: Xin Bello : 1985 Visit/Account:[id number] Date of Sevice: 02/07/2018 EXAMINATION: MRI lumbar spine without IV contrast MRI lumbar spine with IV contrast HISTORY: Weakness in legs, incontinence, arm weakness. COMPARISON: CT of the lumbar spine from 01/06/2018. TECHNIQUE: Multi-planar, multi-sequence lumbar spine MRI was performed before and after IV contrast. CONTRAST: 15 mL of IV MultiHance gadolinium. FINDINGS: Alignment: Normal. Vertebral marrow signal: Negative. Distal thoracic cord: Negative. Conus: negative, terminates at the upper L1 level. Cauda equina: Negative. Paravertebral soft tissues: Negative. Visualized abdominal and pelvic structures: Negative. Enhancement pattern: Negative. Disc spaces: Lower thoracic spine: Normal. L1-2: Normal. L2-3: Normal. L3-4: Minimal disc desiccation with a mild concentric disc bulge. No significant central canal or for aminal stenosis. L4-5: Normal. L5-S1: Normal. IMPRESSION: 1. Mild disc bulge at L3-4 without significant spinal stenosis or foraminal stenosis. 2. Otherwise normal lumbar spine MRI. Report Dictated By: Mechelle Lopez MD at 02/07/2018 9:02 PM Report E-Signed By: Mechelle Lopez MD at 02/07/2018 9:05 PM WSN:[id number]
--- NOTE | 2018-02-07 21:32 | RADIOLOGY IMAGING REPORT ---
FACILITY: [facility] PATIENT NAME: Xin Bello : 1985 MR: [id number] V: [id number] EXAM DATE: ORDERING PHYSICIAN: BLAYNE JETER TECHNOLOGIST: Location: [facility] - [place] Patient: Xin Bello : 1985 Visit/Account:[id number] Date of Sevice: 02/07/2018 EXAMINATION: Cervical spine MRI without IV contrast Cervical spine MRI with IV contrast HISTORY: Weakness in legs. Incontinence. Arm weakness. COMPARISON: CT neck with IV contrast 01/06/2018. MR cervical spine without contrast 11/03/2015. TECHNIQUE: Multi-planar, multi-sequence cervical spine MRI was performed before and after IV contras t. CONTRAST: 15 mL of IV MultiHance FINDINGS: Alignment: Normal. Vertebral marrow signal: Negative. Cranio-cervical junction: Negative. Visualized posterior fossa: Negative. Soft tissues: Negative. Cervical cord: Negative. No abnormal cord signal or enhancement. Enhancement pattern: Normal. Disc Spaces: C1-2: Negative. C2-3: Negative. C3-4: Negative. C4-5: Slight posterior disc bulge. No central canal or foraminal stenosis. C5-6: Disc space narrowing with a small posterior disc-osteophyte complex which results in mild centr al canal narrowing. No foraminal stenosis. C6-7: Slight posterior disc bulge. No central canal or foraminal stenosis. C7-T1: Negative. Upper thoracic spine: Negative. IMPRESSION: 1. Stable mild spondylotic changes, with mild central canal narrowing at C5-C6. 2. No significant central canal or foraminal stenosis at any level. 3. No abnormal enhancement. Report Dictated By: Epi Deras MD at 02/07/2018 9:17 PM Report E-Signed By: Epi Deras MD at 02/07/2018 9:29 PM WSN:[id number]
== END 2018-02-07 22:10 | disposition home or self-care (01) ==
LOC: ER 16:36
DX: S93.402A Sprain of unspecified ligament of left ankle, initial encounter (principal); R26.81 Unsteadiness on feet
CPT/HCPCS: 70553; 72156; 72158; 73610; 73630; 84703; 85025; 85651; 86140; 99285; A9577; 82040; 82247; 82310; 82374; 82435; 82565; 82947; 84075; 84132; 84155; 84295; 84450; 84460; 84520

== ENCOUNTER 2018-02-22 14:48 | Emergency (ER) | payer MEDICAID ==
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
[2018-02-22 16:17] LABS: PLATELET COUNT, AUTOMATED 209 K/uL (150-450)
[2018-02-22] MEDS ORDERED: APAP/HYDROCODONE 325/5 TAB PO ONE (16:45)
[2018-02-22 17:25] VITALS: BP 137/82
== END 2018-02-22 17:27 | disposition other institution (70) ==
LOC: ER 15:42 → EDBEDREQSVC 17:12 → EDBEDREQTM 17:12 → EDBEDREQ 17:12 → ER 17:27
DX: R45.851 Suicidal ideations (principal); F31.9 Bipolar disorder, unspecified; K50.90 Crohn's disease, unspecified, without complications; Z79.899 Other long term (current) drug therapy
CPT/HCPCS: 80305; 81001; 81025; 83735; 84443; 85025; 99285; G0480; 80320; 80329; 82040; 82247; 82310; 82374; 82435; 82565; 82947; 84075; 84132; 84155; 84295; 84450; 84460; 84520

== ENCOUNTER 2018-02-22 17:12 | Inpatient (IN) | payer MEDICAID ==
[~2018-02-22] VITALS: Ht 167.6 cm; Wt 88.9 kg
[2018-02-22 17:30] VITALS: BP 104/74
[2018-02-22] MEDS ORDERED: MAG HYD/AL HYD/SIMETH 30ML UDC PO PRN (17:35)
[2018-02-22] MEDS ORDERED: hydrOXYzine PAMOATE 25 MG CAP PO PRN (17:40)
[2018-02-22] MEDS: ACETAMINOPHEN 325 MG TAB PO PRN (19:34)
[2018-02-22] MEDS: IBUPROFEN 600 MG TAB PO PRN (19:34)
[2018-02-22] MEDS: QUEtiapine FUM 25 MG TAB PO SCH ×2 (22:06→22:33)
[2018-02-23 06:35] VITALS: BP 111/50
[2018-02-23] MEDS: MULTIVITAMINS PO SCH (08:34)
[2018-02-23] MEDS ORDERED: hydrOXYzine PAMOATE 25 MG CAP PO PRN (12:15)
[2018-02-23] MEDS: VENLAFAXINE XR 37.5 MG CAPCR PO SCH (12:41)
[2018-02-23] MEDS: ACETAMINOPHEN 325 MG TAB PO PRN (12:42)
[2018-02-23] MEDS: IBUPROFEN 600 MG TAB PO PRN (12:42)
[2018-02-23 12:55] VITALS: BP 108/64
[2018-02-23] MEDS: FAMOTIDINE 20 MG TAB PO SCH (14:25)
[2018-02-23] MEDS ORDERED: traZODone HCL 50 MG TAB PO PRN (18:35)
[2018-02-23 22:05] VITALS: BP 131/73
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
[2018-02-24] MEDS: MULTIVITAMINS PO SCH (08:03)
[2018-02-24] MEDS: VENLAFAXINE XR 37.5 MG CAPCR PO SCH (08:03)
[2018-02-24] MEDS: FAMOTIDINE 20 MG TAB PO SCH (08:03)
[2018-02-24] MEDS: ACETAMINOPHEN 325 MG TAB PO PRN (08:05)
--- NOTE | 2018-02-24 10:02 | BHS Progress Note ---
[facility] - Subjective Progress Notes Subjective Patient cooperative and pleasant today, communicating well with outpatient therapist visiting today, and treatment team staff. After discussion of risks verses benefits, will increase Effexor to 75mg total dose, and re-visit a lower dose of seroquel tonight at 25 mg. No other concerns today. Appetite good, Mood showing some improvement today. No other concerns today. Suicidal Ideation: Resolving Homicidal Ideation: None [facility] - Objective Physical Exam Vital Signs Vital Signs Date Time Temp Pulse Resp B/P (MAP) Pulse Ox O2 Delivery O2 Flow Rate FiO2 02/23/18 22:05 99.2 91 131/73 (92) 95 Room Air 02/23/18 12:55 16 Vital Signs Date Time Temp Pulse Resp B/P (MAP) Pulse Ox O2 Delivery O2 Flow Rate FiO2 02/23/18 22:05 99.2 91 131/73 (92) 95 Room Air 02/23/18 12:55 16 Muscle Strength and Tone: WNL Gait and Station: Steady [facility] Medications Reviewed: Side Effects, Benefits of Medication, Risks Allergies Reviewed: Yes Mental Status Exam General Appearance: Casual, Well Groomed, Good Eye Contact, Cooperative, Polite , Good Interaction, No Tearful, No Psychomotor Agitation, No Psychomotor Retardation, No Bizarre Mannerisms, No Tics Speech: Clear, Spontaneous, Normal Rate, Normal Rhythm, Normal Volume, Normal Tone, No Garbled, No Rambling, No Inappropriate Mood: Dysthmic/Depressed (improving. ) Affect: Full and Appropriate (at times), Calm, No Withdrawn, No Tearful, No Anxious, No Agitated Thought Process: Organized, Logical, Goal Directed, No Loose Associations, No Flight of Ideas Thought Content: Suicidal Ideation (resolving), No Homicidal Ideation, No Delusions, No Auditory Halllucinations, No Visual Hallucinations, No Thought Broadcasting, No Ideas of Reference, No Obsessions, No Compulsions Sensorium: Clear Cognition: Alert & Oriented-Person, Alert & Oriented-Place, Alert & Oriented- Time, Odgwv-Vaxiwloi-Jsndwgnvy Memory: Immediate, Recent, Remote Intelligence: Average Insight Judgment: Fair (improving. ) [facility] Assessment and Plan [id number] Encounter Date: Feb 24, 2018 [id number] Encounter Time: 09:00 [facility] Plan: Necessary Precautions, Individual/Group Therapy, Admin/Titrate Meds, Educate Patient Tobacco Medications: Not Appropriate Condition Multpiple Antipsychotics Used: No Problems: (1) PTSD (post-traumatic stress disorder) Status: Chronic (2) Major depression, recurrent Status: Chronic Condition 1. continue treatment. 2. increase lexapro, 3. low dose seroquel qhs Vital Signs Date Time Temp Pulse Resp B/P (MAP) Pulse Ox O2 Delivery O2 Flow Rate FiO2 02/23/18 22:05 99.2 91 131/73 (92) 95 Room Air 02/23/18 12:55 16 Problem Qualifiers (1) Major depression, recurrent: Major depression episode severity: moderate JONATHAN SENA MD Feb 24, 2018 10:02
[2018-02-24] MEDS: IBUPROFEN 600 MG TAB PO PRN (11:55)
[2018-02-24] MEDS ORDERED: VENLAFAXINE XR 37.5 MG CAPCR PO ONE (12:00)
[2018-02-24 13:15] VITALS: BP 128/75
[2018-02-24 14:18] VITALS: BP 125/98
[2018-02-24] MEDS: QUEtiapine FUM 25 MG TAB PO SCH (20:53)
[2018-02-24 23:04] VITALS: BP 110/87
[2018-02-25 06:09] VITALS: BP 131/76
[2018-02-25] MEDS: FAMOTIDINE 20 MG TAB PO SCH (08:23)
[2018-02-25] MEDS: MULTIVITAMINS PO SCH (08:23)
[2018-02-25] MEDS: VENLAFAXINE XR 75 MG CAPCR PO SCH (08:23)
--- NOTE | 2018-02-25 12:43 | BHS Progress Note ---
[facility] - Subjective Progress Notes Subjective Patient reporting improved sleep last night, on low dose seroquel. Mood improving, appetite good, will continue current medications. therapy to focus on somatic manifestations. No other concerns today. Suicidal Ideation: Resolving Homicidal Ideation: None [facility] - Objective Physical Exam Vital Signs Vital Signs Date Time Temp Pulse Resp B/P (MAP) Pulse Ox O2 Delivery O2 Flow Rate FiO2 02/25/18 06:09 98.6 80 16 131/76 (94) 96 Room Air Muscle Strength and Tone: WNL Gait and Station: Steady [facility] Medications Reviewed: Side Effects, Benefits of Medication, Risks Allergies Reviewed: Yes Mental Status Exam General Appearance: Casual, Well Groomed, Good Eye Contact, Cooperative, Polite , Good Interaction, No Tearful, No Psychomotor Agitation, No Psychomotor Retardation, No Bizarre Mannerisms, No Tics Speech: Clear, Spontaneous, Normal Rate, Normal Rhythm, Normal Volume, Normal Tone, No Garbled, No Rambling, No Inappropriate Mood: Dysthmic/Depressed (improving. ) Affect: Full and Appropriate (at times), Calm, No Withdrawn, No Tearful, No Anxious, No Agitated Thought Process: Organized, Logical, Goal Directed, No Loose Associations, No Flight of Ideas Thought Content: Suicidal Ideation (resolving), No Homicidal Ideation, No Delusions, No Auditory Halllucinations, No Visual Hallucinations, No Thought Broadcasting, No Ideas of Reference, No Obsessions, No Compulsions Sensorium: Clear Cognition: Alert & Oriented-Person, Alert & Oriented-Place, Alert & Oriented- Time, Peyfd-Nyaktyzs-Puewuzkzc Memory: Immediate, Recent, Remote Intelligence: Average Insight Judgment: Fair (improving. ) [facility] Assessment and Plan [id number] Encounter Date: Feb 25, 2018 [id number] Encounter Time: 11:30 [facility] Plan: Necessary Precautions, Individual/Group Therapy, Admin/Titrate Meds, Educate Patient Tobacco Medications: Not Appropriate Condition Multpiple Antipsychotics Used: No Problems: (1) PTSD (post-traumatic stress disorder) Status: Chronic (2) Major depression, recurrent Status: Chronic Condition 1. continue current medications. 2. therapy to focus on somatic concerns. 3. potential discharge tomorrow. Problem Qualifiers (1) Major depression, recurrent: Major depression episode severity: moderate JONATHAN SENA MD Feb 25, 2018 12:43
[2018-02-25 14:25] VITALS: BP 152/94
[2018-02-25] MEDS: ACETAMINOPHEN 325 MG TAB PO PRN ×2 (16:35→21:05)
[2018-02-25] MEDS: IBUPROFEN 600 MG TAB PO PRN (16:35)
[2018-02-25 20:40] VITALS: BP 131/76
[2018-02-25] MEDS: QUEtiapine FUM 25 MG TAB PO SCH (20:58)
[2018-02-26 06:40] VITALS: BP 99/88
[2018-02-26] MEDS: VENLAFAXINE XR 75 MG CAPCR PO SCH (08:17)
[2018-02-26] MEDS: FAMOTIDINE 20 MG TAB PO SCH (08:17)
[2018-02-26] MEDS: MULTIVITAMINS PO SCH (08:17)
[2018-02-26] MEDS ORDERED: VENL75CA58 PO (08:46)
[2018-02-26] MEDS ORDERED: FAMO20TA28 PO (08:47)
[2018-02-26] MEDS ORDERED: QUET25TA30 PO (08:48)
[2018-02-26] MEDS ORDERED: MULT-1379 PO (08:49)
[2018-02-26] MEDS ORDERED: IBUP600T22 PO (08:50)
[2018-02-26] MEDS ORDERED: ACET-1966 PO (08:51)
[2018-02-26] MEDS ORDERED: HYDR25CA13 PO (08:51)
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
== END 2018-02-26 12:55 | disposition home or self-care (01) | DRG 885 ==
LOC: BHS 17:12
PROVIDERS: ADMIT Psychiatry & Neurology Psychiatry; ATTEND Psychiatry & Neurology Psychiatry
DX: F33.2 Major depressive disorder, recurrent severe without psychotic features (principal); R45.851 Suicidal ideations; G89.29 Other chronic pain; F43.12 Post-traumatic stress disorder, chronic; Z62.810 Personal history of physical and sexual abuse in childhood; F41.9 Anxiety disorder, unspecified; Z62.811 Personal history of psychological abuse in childhood; Z63.5 Disruption of family by separation and divorce; Z91.5 Personal history of self-harm; Z91.410 Personal history of adult physical and sexual abuse; Z91.411 Personal history of adult psychological abuse; Z90.49 Acquired absence of other specified parts of digestive tract
CPT/HCPCS: 80305; 80320; 80329; 81001; 81025; 82040; 82247; 82310; 82374; 82435; 82565; 82947; 83735; 84075; 84132; 84155; 84295; 84443; 84450; 84460; 84520; 85025; 99285; Q0177

== ENCOUNTER → 2018-10-20 | Outpatient (CLI) | payer MEDICARE, MEDICAID ==
[~2018-10-20] MED LIST changes: +ACET-1966 PO; +FAMO20TA28 PO; +HYDR25CA13 PO; +IOPAMIDOL 76% 150 ML INFUS BTL 150 ML ONE; +MULT-1379 PO; +NS 0.9% 25 ML BAG 50 ML ONE; +QUET25TA30 PO; +VENL75CA58 PO
--- NOTE | 2018-10-20 14:46 | RADIOLOGY IMAGING REPORT ---
FACILITY: [facility] PATIENT NAME: Xin Bello : 1985 MR: [id number] V: [id number] EXAM DATE: ORDERING PHYSICIAN: CARLOS WHITE TECHNOLOGIST: Location: [facility] Patient: Xin Bello : 1985 Visit/Account:[id number] Date of Sevice: 10/20/2018 EXAMINATION: CT Angiogram of the Neck with IV contrast HISTORY: Vertigo, visual deficit, neck pain TECHNIQUE: Contrast enhanced CT neck angiogram was performed following the injection of 75 mL IV Is [id number]. Sagittal and coronal MIP reformations generated. Stenosis of the internal carotid arteries are calculated using NASCET criteria. One of the following dose optimization techniques was utilized in the performance of this exam: autom ated exposure control; adjustment of the mA and/or kV according to patient size; or use of iterative reconstruction technique. Specific details can be referenced in the facility's radiology CT exam ope rational policy. COMPARISON: Neck CT January 06, 2018 FINDINGS: Aortic arch and great vessels: Normal. Right carotid vasculature: Normal. Left carotid vasculature: Normal. Vertebral arteries: Mild short segment left vertebral artery narrowing at the C5-6 level secondary to lateral endplate spurring. Visualized intracranial vasculature: Normal. Neck soft tissues: Inferior right thyroid nodule is less visible on this exam. Upper chest: Normal. Osseous structures: Mild to moderate C5-6 disc space degeneration. Mild to moderate right C4-5 forami nal narrowing. Moderate to severe bilateral C5-C6 foraminal narrowing. IMPRESSION: 1. Mild short segment left vertebral artery narrowing at C5-6 secondary to lateral endplate spurring. 2. Otherwise normal neck arterial vasculature. 3. Mild to moderate C5-6 disc space degeneration. Multilevel cervical foraminal narrowing most pronou nced at C5-6, see comments above. Report Dictated By: Brandon Jama MD at 10/20/2018 2:29 PM Report E-Signed By: Brandon Jama MD at 10/20/2018 2:41 PM WSN:[id number]
== END ==
LOC: CT 01:21
PROVIDERS: ATTEND Psychiatry & Neurology Neurology
DX: M47.892 Other spondylosis, cervical region (principal)
CPT/HCPCS: 70498; Q9967

== ENCOUNTER → 2018-11-11 | Outpatient (CLI) | payer MEDICARE, MEDICAID ==
[~2018-11-11] MED LIST changes: -IOPAMIDOL 76% 150 ML INFUS BTL 150 ML ONE; -NS 0.9% 25 ML BAG 50 ML ONE
--- NOTE | 2018-11-11 13:33 | RADIOLOGY IMAGING REPORT ---
FACILITY: [facility] PATIENT NAME: Xin Bello : 1985 MR: [id number] V: [id number] EXAM DATE: [id number] ORDERING PHYSICIAN: CARLOS WHITE TECHNOLOGIST: Location: [facility] Patient: Xin Bello : 1985 Visit/Account:[id number] Date of Sevice: 11/11/2018 Examination: MR brain without contrast History: Vertigo, diplopia, numbness in face, arms and legs Comparison: MR February 07, 2018 Technique: Multiplane MR imaging was performed through the brain without contrast. Findings: Diffusion: None Ventricles: Normal Midline shift: None Extraaxial fluid: None. Midline craniocervical structures: Normal Parenchyma: Normal Vascular flow voids: Normal Orbits and paranasal sinuses: Normal Other: No significant additional finding. Impression: Normal non-contrast brain MR. Report Dictated By: Brandon Jama MD at 11/11/2018 1:19 PM Report E-Signed By: Brandon Jama MD at 11/11/2018 1:29 PM WSN:[id number]
== END ==
LOC: MRI 11-10 06:55
PROVIDERS: ATTEND Psychiatry & Neurology Neurology
DX: R00.2 Palpitations (principal); R42 Dizziness and giddiness; H53.2 Diplopia; R20.0 Anesthesia of skin
CPT/HCPCS: 70551

== ENCOUNTER 2018-11-20 17:15 | Outpatient (RCR) | payer MEDICARE, MEDICAID ==
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
--- NOTE | 2018-10-29 13:46 | PT PLAN OF CARE ---
Physician: Coni Marcus MD Patient is being seen: 2-3x/Week Therapist: Liliana Segura PT, DPT, CLT Medical Diagnosis: Vertigo Treatment Diagnosis: Vertigo, Cervical Dysfunction, Post Concussion Syndrome, TMJ Dysfunction Date of Onset: 02/23/15 Date of Initial Evaluation: 09/12/18 Date patient was last seen: 10/29/18 Number of treatments: 10 Number of cancellations/No shows: 6 INTERVENTIONS: Manual Therapy/STM/MET Strengthening/condition Ice/Heat Range of Motion Spinal Stabilization Ultrasound Stretching Iontophoresis Neuromuscular Re-ed Closed Chain Program Electrical Stim Posture/Body mechanics Gait Trg/Balance Trg Home Exercise Program Mech./Manual Traction Therapeutic Activities GOALS: In 3 weeks pt will improve DHI score to <35/50 for improved function with ADL's. In 3 weeks pt will no longer have L lateral translation with jaw opening 5/5 times with midline motion for improved function with ADL's. In 6 weeks pt will improve DHI score to <30/50 for improved function with ADL's. In 6 weeks pt will improve cervical ROM to full without pain for improved function with ADL's. In 6 weeks pt will centralize cervical pain to the neck only for improved function with ADL's. MET PATIENT'S GOAL: Decrease neck and jaw pain and improve vertigo. Status of Patient's Goals: 1/5 goals MET, 4/5 In Progress Patient Compliance: Poor Prognosis: Good Reasons for continuing therapy: At this time Xin shows slow progress with physical therapy complicated by external conditions. Xin shows improved cervical ROM with decreased neck pain, jaw as well as inner ear pain. Following treatment for BPPV of the vertical and horizontal canals, pt no longer is exhibiting signs of inner ear dysfunction with positional change. Elicited nystagmus is no longer present with any change in position. However, pt remains to have dizziness that she describes as "internal dizziness" that is likely related to poor cardiovascular response with rapid drop in blood pressure with transition from seated<>standing, supine<>sitting, and poor accommodation with increased activity. During her session on September,, pt exhibited irregular palpable HR that when monitored was elevated in the 96+ bpm while seated as well as lower BP rating around 110/82 following transfer from seated to standing after >5 minutes of prolonged standing. At this time pt reported dizziness. Additionally, on all sessions past October 10, pt has presented with bilateral dilated pupils with photosensitivity. Pt has been inconsistent with attendance of sessions and following a week long break away from therapy reported on October 10 that she earlier had symptoms consistent with a CVA including L facial numbness and L arm weakness and tingling, slurred speech and in ability to find correct words and difficulty walking with gait drifting to the L. No such symptoms were present at the time of the treatment session but pt was educated to go to the ER if any symptoms recur. I have at this time referred Xin to follow up with her neurologist for dizziness symptoms as well as to seek primary care services to help navigate the extensive connected symptoms she exhibits. Physical therapy will continue to focus on improving heart rate response, cervical dysfunction and TMJ dysfunction. Posture: Mild forward head with increased thoracic kyphosis ROM: Cervical ROM: retraction: full with R posterior pain, ext: minimal restrictions no pain, flexion: minimal restrictions with posterior stretch, R SB: no pain but feels stuck 40 degrees, L SB: R sided stretch 49 degrees, L rotation: 66 degrees no pain, R rotation: posterior R pain 62 degrees. TMJ ROM: slight L lateral translation with 5/5 jaw openings without popping Palpation: Pt is ttp along R SCM, suboccipitals, levator, scalenes and UT musculature with excessive tone present in each. Special Tests: Vertebral Artery Test: (+)L, (-)R Outcome measures: Dizziness Handicap Inventory (DHI): 43/50 If you have any questions or concerns, please feel free to contact me at [phone]. Thank you, Liliana Segura, PT, DPT, CLT Referring Provider Signature: Date: MTDD
== END 2018-12-11 ==
LOC: PT 17:15
PROVIDERS: ATTEND Psychiatry & Neurology Neurology
DX: R42 Dizziness and giddiness (principal); F07.81 Postconcussional syndrome; M26.601 Right temporomandibular joint disorder, unspecified; R20.2 Paresthesia of skin
CPT/HCPCS: 97163

== ENCOUNTER → 2018-12-25 | Outpatient (CLI) | payer MEDICARE, MEDICAID ==
--- NOTE | 2018-12-25 15:56 | RADIOLOGY IMAGING REPORT ---
FACILITY: [facility] PATIENT NAME: Xin Bello : 1985 MR: [id number] V: [id number] EXAM DATE: ORDERING PHYSICIAN: NORMA MENDOZA TECHNOLOGIST: Location: [facility] Patient: Xin Bello : 1985 Visit/Account:[id number] Date of Sevice: 12/25/2018 CT BRAIN NO CONTRAST History: Headache since was Botox injection several days previously. Blurred vision TECHNIQUE: Contiguous angled axial images were obtained from the vertex through the base of the sku ll without intravenous contrast. One of the following dose optimization techniques was utilized in th e performance of this exam: Automated exposure control; adjustment of the mA and/or kV according to t he patient's size; or use of an iterative reconstruction technique. Specific details can be referen jerry in the facility's radiology CT exam operational policy. COMPARISON STUDIES: Normal MRI brain 11/11/2018 FINDINGS: Ventricles / sulci / fissures: Negative. Masses / hemorrhage / midline shift: Negative. Intra-axial findings: Normal. Extra-axial fluid collections: Negative. Intracranial vasculature and dural sinuses: Negative. Skull base / calvarium: Negative. Scalp: negative Visualized mastoid air cells / paranasal sinuses: Well aerated. Orbits: Negative IMPRESSION: Normal exam Results were called to NORMA MENDOZA at 12/25/2018 3:49 PM. Report Dictated By: Mehdi Patel MD at 12/25/2018 3:49 PM Report E-Signed By: Mehdi Patel MD at 12/25/2018 3:51 PM WSN:[id number]
== END ==
LOC: CT 15:06
PROVIDERS: ATTEND Nurse Practitioner Family
DX: G44.209 Tension-type headache, unspecified, not intractable (principal)
CPT/HCPCS: 70450

== ENCOUNTER 2019-01-21 14:00 | Outpatient (RCR) | payer MEDICARE, MEDICAID ==
--- NOTE | 2019-01-02 18:01 | PT PLAN OF CARE ---
Physician: Coni Marcus MD Patient is being seen: 2-3x/Week Therapist: Liliana Segura, PT, DPT, CLT Medical Diagnosis: Vertigo Treatment Diagnosis: Vertigo, Cervical Dysfunction, Post Concussion Syndrome, TMJ Dysfunction Date of Onset: 02/23/15 Date of Initial Evaluation: 09/12/18 Date patient was last seen: 01/02/19 Number of treatments: 17 Number of cancellations/No shows: 6 INTERVENTIONS: Manual Therapy/STM/MET Strengthening/condition Ice/Heat Range of Motion Spinal Stabilization Ultrasound Stretching Iontophoresis Neuromuscular Re-ed Closed Chain Program Electrical Stim Posture/Body mechanics Gait Trg/Balance Trg Home Exercise Program Mech./Manual Traction Therapeutic Activities GOALS: In 3 weeks pt will improve DHI score to <35/50 for improved function with ADL's. MET In 3 weeks pt will no longer have L lateral translation with jaw opening 5/5 times with midline motion for improved function with ADL's. MET In 6 weeks pt will improve DHI score to <30/50 for improved function with ADL's. In 6 weeks pt will improve cervical ROM to full without pain for improved function with ADL's. In 6 weeks pt will centralize cervical pain to the neck only for improved function with ADL's. MET PATIENT'S GOAL: Decrease neck and jaw pain and improve vertigo. Status of Patient's Goals: 3/5 goals MET, 2/5 In Progress Patient Compliance: Poor Prognosis: Good Reasons for continuing therapy: Xin is beginning to show significant progress towards improved function and mobility. Pt attendance to PT sessions has improved and been more consistent over the last couple weeks. Cervical motion is improved with jaw pain no longer present, but lingering headaches. Dizziness at this time is minimal with only coming on with transfers from seated<>standing quickly, or increased activity. Pt was recently treated for likely Botox toxicity which is likely to have contributed to her autonomic symptoms including dizziness and flushing of the face. Further PT to continue to work on cardiac response with exercise as well as progress towards independent shoulder and spinal strengthening for stability and improved function with ADL's. Posture: Mild increased thoracic kyphosis ROM: Cervical ROM: retraction: full with R posterior pain, ext: full no pain, flexion: full no with posterior stretch, R SB: 40 degrees with stretch, L SB: 55 degrees, B rotation full no pain TMJ ROM: normal alignment without pain Palpation: Pt is ttp along R SCM, suboccipitals, levator, scalenes and UT musculature with excessive tone present in each. Special Tests: Vertebral Artery Test: (+)L, (-)R Outcome measures: Dizziness Handicap Inventory (DHI): 34/50 If you have any questions or concerns, please feel free to contact me at [phone]. Thank you, Liliana Segura, PT, DPT, CLT Referring Provider Signature: Date: MTDD
== END 2019-01-21 18:00 | disposition home or self-care (01) ==
LOC: PT 14:00
PROVIDERS: ATTEND Psychiatry & Neurology Neurology
DX: R42 Dizziness and giddiness (principal)